=== PATIENT | male | born 1990 | race African-American/Black ===

== ENCOUNTER 2016-10-12 09:31 | Emergency (ER) | payer OTHER ==
[~2016-10-12] VITALS: Ht 157.5 cm; Wt 80.0 kg
[~2016-10-12 09:31] MED LIST: BENZ100 PO; IBUP800T23 PO; METHO500 PO; Z.0.NO CURRENT MEDS; ZITH250T PO
[2016-10-12 09:33] VITALS: BP 140/81; PULSE 70; RESP 16; TEMP 98.5; O2SAT 98
[2016-10-12] MEDS ORDERED: SODIUM CHLORIDE 0.9% FLUSH 10 ML FLUSH IV FLUSH PRN (10:15)
[2016-10-12] MEDS ORDERED: KETOROLAC TROMETHAMINE 60 MG/2 ML (IM) VIAL IM ONE (10:15)
[2016-10-12] MEDS ORDERED: KETOROLAC TROMETHAMINE 30 MG/ML (IVP) VIAL IV PUSH ONE (10:15)
--- NOTE | 2016-10-12 10:23 | PD ---
HPI Chief Complaint: Complaint Time Seen by Provider: 10:18 (Yamel Barajas) Time Seen by Provider: 10:23 (Marti Zamora MD) Travel History International Travel<30 days: No Contact w/Intl Traveler<30days: No Traveled to known affect area: No (Yamel Barajas) History of Present Illness HPI 26-year-old male presents to emergency Department with complaint of burning on urination since yesterday. He has had difficulty urinating this morning with minimal urine output. He has attempted to urinate 3 times this morning with no relief. Reports hematuria 2-3 days ago, but not now. Reports lower abdominal pain that radiates to both flanks. Denies fever, nausea, vomiting. Denies penile drainage, pain, testicular pain, testicular swelling. Denies exposure to STD. Denies history of kidney stones. Has not taken any medications or tried any treatment to alleviate his symptoms. No known allergies. No other modifying factors or associated signs and symptoms. (Yamel Barajas) PFSH Past Medical History Respiratory: Yes (asthma) (Yamel Barajas) Social History Tobacco Use: No (Yamel Barajas) Allergies-Medications (Allergen,Severity, Reaction): Coded Allergies: No Known Allergies (Unverified , 10/12/16) Reported Meds & Prescriptions Reported Meds & Active Scripts Active No Active Prescriptions or Reported Medications (Marti Zamora MD) Review of Systems Except as stated in HPI: all other systems reviewed are Neg (Yamel Barajas) Physical Exam Narrative GENERAL: Well-nourished, well-developed male patient, in no acute distress; afebrile, nontoxic-appearing; pacing around the room and appears uncomfortable SKIN: Warm and dry. No rash. HEAD: Atraumatic. Normocephalic. EYES: Pupils equal and round. No scleral icterus. No injection or drainage. ENT: Mucosa pink and moist. NECK: Trachea midline. CARDIOVASCULAR: Regular rate. RESPIRATORY: No accessory muscle use. GASTROINTESTINAL: Abdomen soft, nontender, nondistended. Hepatic and splenic margins not palpable. Bowel sounds are active 4 quadrants. Bladder tender and distended. MUSCULOSKELETAL: No obvious deformities. No clubbing. No cyanosis. No edema. BACK: Patient reports CVA tenderness bilaterally on physical exam. NEUROLOGICAL: Awake and alert. Oriented 3. No obvious cranial nerve deficits. Motor grossly within normal limits. Normal speech. Moves all extremities. 5/5 strength to all extremities. PSYCHIATRIC: Appropriate mood and affect; insight and judgment normal. (Yamel Barajas) Data Data Last Documented VS Vital Signs Date Time Temp Pulse Resp B/P Pulse Ox O2 Delivery O2 Flow Rate FiO2 10/12/16 09:33 98.5 70 16 140/81 98 (Marti Zamora MD) Orders Gc And Chlamydia Pcr (10/12/16 10:02) Urinalysis - C+S If Indicated (10/12/16 10:02) Ketorolac Inj (Toradol Inj) (10/12/16 10:15) Complete Blood Count With Diff (10/12/16 10:14) Iv Access Insert/Monitor (10/12/16 10:14) Sodium Chloride 0.9% Flush (Ns Flush) (10/12/16 10:15) Ketorolac Inj (Toradol Inj) (10/12/16 10:15) Cath For Specimen (10/12/16 10:14) Basic Metabolic Panel (Bmp) (10/12/16 10:26) Bladder/Catheter Irrigation (10/12/16 11:58) (Marti Zamora MD) Labs Laboratory Tests Test 10/12/16 10/12/16 11:00 11:20 Urine Color YELLOW Urine Turbidity CLEAR Urine pH 6.0 Urine Specific [place] 1.025 Urine Protein 100 mg/dL Urine Glucose (UA) NEG mg/dL Urine Ketones NEG mg/dL Urine Occult Blood MOD Urine Nitrite NEG Urine Bilirubin NEG Urine Urobilinogen 2.0 MG/DL Urine Leukocyte Esterase NEG Urine RBC /hpf Urine WBC 8 /hpf Urine Mucus FEW /lpf Microscopic Urinalysis Comment CULT NOT INDICATED White Blood Count 9.3 TH/MM3 Red Blood Count 5.45 MIL/MM3 Hemoglobin 14.3 GM/DL Hematocrit 44.9 % Mean Corpuscular Volume 82.4 FL Mean Corpuscular Hemoglobin 26.2 PG Mean Corpuscular Hemoglobin 31.8 % Concent Red Cell Distribution Width 14.3 % Platelet Count 143 TH/MM3 Mean Platelet Volume 11.3 FL Neutrophils (%) (Auto) 82.9 % Lymphocytes (%) (Auto) 12.0 % Monocytes (%) (Auto) 4.2 % Eosinophils (%) (Auto) 0.2 % Basophils (%) (Auto) 0.7 % Neutrophils # (Auto) 7.7 TH/MM3 Lymphocytes # (Auto) 1.1 TH/MM3 Monocytes # (Auto) 0.4 TH/MM3 Eosinophils # (Auto) 0.0 TH/MM3 Basophils # (Auto) 0.1 TH/MM3 CBC Comment DIFF FINAL Differential Comment Sodium Level 143 MEQ/L Potassium Level 4.1 MEQ/L Chloride Level 107 MEQ/L Carbon Dioxide Level 28.1 MEQ/L Anion Gap 8 MEQ/L Blood Urea Nitrogen 11 MG/DL Creatinine 1.30 MG/DL Estimat Glomerular Filtration 80 ML/MIN Rate Random Glucose 112 MG/DL Calcium Level 8.8 MG/DL (Marti Zamora MD) Labs Laboratory Tests Test 10/12/16 10/12/16 11:00 11:20 Urine Color YELLOW Urine Turbidity CLEAR Urine pH 6.0 Urine Specific [place] 1.025 Urine Protein 100 mg/dL Urine Glucose (UA) NEG mg/dL Urine Ketones NEG mg/dL Urine Occult Blood MOD Urine Nitrite NEG Urine Bilirubin NEG Urine Urobilinogen 2.0 MG/DL Urine Leukocyte Esterase NEG Urine RBC /hpf Urine WBC 8 /hpf Urine Mucus FEW /lpf Microscopic Urinalysis Comment CULT NOT INDICATED Chlamydia trachomatis DNA INVALID (PCR) Neisseria gonorrhoeae DNA INVALID (PCR) White Blood Count 9.3 TH/MM3 Red Blood Count 5.45 MIL/MM3 Hemoglobin 14.3 GM/DL Hematocrit 44.9 % Mean Corpuscular Volume 82.4 FL Mean Corpuscular Hemoglobin 26.2 PG Mean Corpuscular Hemoglobin 31.8 % Concent Red Cell Distribution Width 14.3 % Platelet Count 143 TH/MM3 Mean Platelet Volume 11.3 FL Neutrophils (%) (Auto) 82.9 % Lymphocytes (%) (Auto) 12.0 % Monocytes (%) (Auto) 4.2 % Eosinophils (%) (Auto) 0.2 % Basophils (%) (Auto) 0.7 % Neutrophils # (Auto) 7.7 TH/MM3 Lymphocytes # (Auto) 1.1 TH/MM3 Monocytes # (Auto) 0.4 TH/MM3 Eosinophils # (Auto) 0.0 TH/MM3 Basophils # (Auto) 0.1 TH/MM3 CBC Comment DIFF FINAL Differential Comment Sodium Level 143 MEQ/L Potassium Level 4.1 MEQ/L Chloride Level 107 MEQ/L Carbon Dioxide Level 28.1 MEQ/L Anion Gap 8 MEQ/L Blood Urea Nitrogen 11 MG/DL Creatinine 1.30 MG/DL Estimat Glomerular Filtration 80 ML/MIN Rate Random Glucose 112 MG/DL Calcium Level 8.8 MG/DL (Yamle Barajas) MDM Medical Decision Making Medical Screen Exam Complete: Yes Emergency Medical Condition: Yes Medical Record Reviewed: Yes Differential Diagnosis Obstructive uropathy, hematuria, inability to urinate Narrative Course 26-year-old male with difficulty urinating that started this morning upon wakening up. He had dysuria yesterday and hematuria with the past couple days. He denies history of kidney stones. His bladder is tender and distended on physical exam. The patient appears uncomfortable and is pacing around the room. He has attempted to urinate 3 times while here in the ER with very minimal urine output. 1015: I spoke with Dr. Keating and he recommended to check kidney function and cath for urine. CBC, CMP ordered. Catheter urine ordered. Urinalysis, chlamydia, gonorrhea ordered. IV ordered, Toradol ordered. Treatment initiated in triage. Care of patient will be transferred to alternate provider when medical bed is available. (Yamel Barajas) Diagnosis Primary Impression: Obstructive uropathy Additional Impressions: Hematuria Inability to urinate Referrals: Sukhwinder Caal DO 1 day Additional Instructions: Go to Dr. Caal's office now for cystoscopy. Med/Other Pt SpecificInfo: No Change to Meds (Marti Zamora MD) Scripts No Active Prescriptions or Reported Meds Disposition: 01 DISCHARGE HOME Condition: Stable Yamel Barajas Oct 12, 2016 10:23 Marti Zamora MD Oct 12, 2016 13:00
[2016-10-12 11:31] LABS: AUTOMATED NEUTROPHIL # 7.7 TH/MM3 (1.8-7.7); BASOPHIL # 0.1 TH/MM3 (0-0.2); BASOPHIL % 0.7 % (0.0-2.0); EOSINOPHIL % 0.2 % (0.0-4.0); HEMATOCRIT 44.9 % (39.0-51.0); HEMO FLAGS DIFF FINAL; LYMPHOCYTE # 1.1 TH/MM3 (1.0-4.8); MEAN CELL VOLUME 82.4 FL (80.0-100.0); MEAN CORPUSCULAR HEMOGLOBIN 26.2 PG (27.0-34.0); MEAN CORPUSCULAR HGB CONC 31.8 % (32.0-36.0); MONO % 4.2 % (0.0-8.0); NEUT % 82.9 % (16.0-70.0); PLATELET COUNT 143 TH/MM3 (150-450); RED BLOOD COUNT 5.45 MIL/MM3 (4.50-5.90); RED CELL DISTRIBUTION WIDTH 14.3 % (11.6-17.2); WHITE BLOOD COUNT 9.3 TH/MM3 (4.0-11.0)
[2016-10-12 11:56] LABS: BICARBONATE 28.1 MEQ/L (21.0-32.0); POTASSIUM 4.1 MEQ/L (3.5-5.1)
[2016-10-12 12:14] LABS: BLOOD, URINE MOD (NEG); COMMENT (UR) CULT NOT INDICATED; CULTURE IF INDICATED CULT NOT INDICATED; GLUCOSE,URINE NEG (NEG); KETONE, URINE NEG (NEG); MUCUS URINE FEW /lpf (OCC); NITRITE,URINE NEG (NEG); URINE COLOR YELLOW (YELLW/STRAW)
[2016-10-12] MEDS ORDERED: MORPHINE SULFATE 4 MG/ML INJ IV PUSH ONE (13:00)
--- NOTE | 2016-10-12 13:05 | PD ---
Data Data Last Documented VS Vital Signs Date Time Temp Pulse Resp B/P Pulse Ox O2 Delivery O2 Flow Rate FiO2 10/12/16 09:33 98.5 70 16 140/81 98 Orders Gc And Chlamydia Pcr (10/12/16 10:02) Urinalysis - C+S If Indicated (10/12/16 10:02) Ketorolac Inj (Toradol Inj) (10/12/16 10:15) Complete Blood Count With Diff (10/12/16 10:14) Iv Access Insert/Monitor (10/12/16 10:14) Sodium Chloride 0.9% Flush (Ns Flush) (10/12/16 10:15) Ketorolac Inj (Toradol Inj) (10/12/16 10:15) Cath For Specimen (10/12/16 10:14) Basic Metabolic Panel (Bmp) (10/12/16 10:26) Bladder/Catheter Irrigation (10/12/16 11:58) Morphine Inj (Morphine Inj) (10/12/16 13:00) Labs Laboratory Tests Test 10/12/16 10/12/16 11:00 11:20 Urine Color YELLOW Urine Turbidity CLEAR Urine pH 6.0 Urine Specific [place] 1.025 Urine Protein 100 mg/dL Urine Glucose (UA) NEG mg/dL Urine Ketones NEG mg/dL Urine Occult Blood MOD Urine Nitrite NEG Urine Bilirubin NEG Urine Urobilinogen 2.0 MG/DL Urine Leukocyte Esterase NEG Urine RBC /hpf Urine WBC 8 /hpf Urine Mucus FEW /lpf Microscopic Urinalysis Comment CULT NOT INDICATED White Blood Count 9.3 TH/MM3 Red Blood Count 5.45 MIL/MM3 Hemoglobin 14.3 GM/DL Hematocrit 44.9 % Mean Corpuscular Volume 82.4 FL Mean Corpuscular Hemoglobin 26.2 PG Mean Corpuscular Hemoglobin 31.8 % Concent Red Cell Distribution Width 14.3 % Platelet Count 143 TH/MM3 Mean Platelet Volume 11.3 FL Neutrophils (%) (Auto) 82.9 % Lymphocytes (%) (Auto) 12.0 % Monocytes (%) (Auto) 4.2 % Eosinophils (%) (Auto) 0.2 % Basophils (%) (Auto) 0.7 % Neutrophils # (Auto) 7.7 TH/MM3 Lymphocytes # (Auto) 1.1 TH/MM3 Monocytes # (Auto) 0.4 TH/MM3 Eosinophils # (Auto) 0.0 TH/MM3 Basophils # (Auto) 0.1 TH/MM3 CBC Comment DIFF FINAL Differential Comment Sodium Level 143 MEQ/L Potassium Level 4.1 MEQ/L Chloride Level 107 MEQ/L Carbon Dioxide Level 28.1 MEQ/L Anion Gap 8 MEQ/L Blood Urea Nitrogen 11 MG/DL Creatinine 1.30 MG/DL Estimat Glomerular Filtration 80 ML/MIN Rate Random Glucose 112 MG/DL Calcium Level 8.8 MG/DL MDM Supervised Visit with SHEILA: Yes Narrative Course I, Dr. Zamora, have reviewed the advance practice practioner's documentation and am in agreement, met with the patient face to face, made the diagnosis, and the medical decision making was done by me. *My assessment and Findings: 26-year-old healthy male here with inability to urinate. History asthma, no previous surgery. Smokes marijuana but not tobacco. Yesterday he had slight amount of burning with urination and then was unable to urinate this morning upon wakening. He notes a pressure in the low abdomen and the urge to urinate but inability to do so. Several days ago he had hematuria but none yesterday. This morning in the ER he was able to urinate approximately 30 mL of grossly bloody urine with clots. Since he's not been able to urinate. Patient has reproducible tenderness palpation in the superior pubic region with fullness and approximate 1 L of urine on bladder scan. He does not have any pain in the flank. Attempted to place urine catheter multiple times by myself and nursing with inability to do so. When I tried the catheter makes it to the prostatic urethra and then stops and when withdrawn is full of clot. Differential includes obstructive uropathy, stricture, stone, infection, gross hematuria. I spoke with Dr. Caal of urology who would like patient discharged from the ER to go to his office now for cystoscopy. Case discussed with patient and significant other who are agreeable with plan. Laboratory workup negative with normal renal function and negative urinalysis except for the blood. No evidence of infection. Diagnosis Primary Impression: Obstructive uropathy Additional Impressions: Hematuria Inability to urinate Referrals: Sukhwinder Caal DO [address] Caal's office now for cystoscopy. Patient Instructions: General Instructions Departure Forms: Tests/Procedures Additional Instruction: Go to Dr. Caal's office now for cystoscopy. Scripts No Active Prescriptions or Reported Meds Disposition: 01 DISCHARGE HOME Condition: Stable Marti Zamora MD Oct 12, 2016 13:05
[2016-10-12] MEDS ORDERED: MORPHINE SULFATE 4 MG/ML INJ IM ONE (13:30)
[2016-10-12 16:04] LABS: CHLAMYDIA PCR INVALID (NOT DETECT); NEISSERIA PCR INVALID (NOT DETECT)
[2016-10-12] MEDS ORDERED: LEVA500T PO (20:57)
[2016-10-12] MEDS ORDERED: NORC5TAB PO (21:10)
[2016-10-14] MEDS ORDERED: HYDR-3580 PO (16:24)
[2016-11-01] MEDS ORDERED: OXYB5TAB10 PO (15:53)
[2016-12-02] MEDS ORDERED: PHEN0.4T PO (10:53)
== END 2016-10-12 13:48 | disposition home or self-care (01) ==
LOC: NEPB 09:31
DX: N13.9 Obstructive and reflux uropathy, unspecified (principal); R31.9 Hematuria, unspecified
CPT/HCPCS: 80048; 81001; 85025; 87491; 87591; 96374; 96375; 99284; J1885

== ENCOUNTER 2016-10-12 16:34 | Emergency (ER) | payer OTHER ==
[~2016-10-12] VITALS: Ht 157.5 cm; Wt 80.0 kg
[2016-10-12 16:38] VITALS: BP 125/67; PULSE 71; RESP 16; O2SAT 98
[2016-10-12] MEDS ORDERED: MIDAZOLAM HCL 5 MG/5 ML VIAL ONE (17:29)
[2016-10-12] MEDS ORDERED: fentaNYL CITRATE 250 MCG/5 ML AMP ONE (17:29)
[2016-10-12] MEDS ORDERED: LEVOFLOXACIN 500 MG PREMIX INJ 100 ML IV ONE (17:37)
--- NOTE | 2016-10-12 18:22 | PD.RAD ---
Post Procedure Progress Note Pre Procedure Diagnosis: (1) Obstructive uropathy (2) Inability to urinate Post Procedure Diagnosis: (1) Obstructive uropathy (2) Inability to urinate Procedure Date: Oct 12, 2016 Supervising Radiologist: Ab Charles Proceduralist/Assist: Arleen Mendieta, RT(R)(), Kar Prajapati RT(R) Anesthesia: Local, Analgesia, Conscious Sedation Plan of Activity Patient to Unit: Other (ED) Patient Condition: Good See PACS Report for procedural detail/treatment Drainage Procedure Procedure 1 Imaging Guidance: Fluoroscopy, Ultrasound Procedure Type: Suprapubic Tube (16 FR) Procedure: Placement Albanian: 16 Fluid Description: Bloody, Yellow Central Venous Access Device Procedure 1 Right (basilic) Peripheral Dialator Placement single lumen Albanian: 4 Ab Charles MD Oct 12, 2016 18:22
[2016-10-12] MEDS ORDERED: IOHEXOL 350 MG/ML 50 ML BTL (for RAD DIAG) OTHER ONE (18:42)
--- NOTE | 2016-10-12 18:55 | PD ---
HPI Chief Complaint: Complaint Time Seen by Provider: 18:48 Travel History International Travel<30 days: No Contact w/Intl Traveler<30days: No Traveled to known affect area: No History of Present Illness HPI The patient is a 26-year-old Josi male who was in the emergency department earlier today for urethral obstruction, staff was unable to pass a Pimentel, and the patient was sent to the urologist office. The patient saw Dr. Caal and was unable to have a Pimentel catheter placed, possibly secondary to a false lumen. Therefore, the patient was sent back to the [facility] for interventional radiology to place a suprapubic catheter. Dr. Charles placed a 16 [place]ammarinese suprapubic catheter which had bloody urine. The patient was then sent to the emergency department for post sedation monitoring. Upon arrival the patient is repetitive after getting Versed 5 mg and fentanyl 250 mics, but vitals were stable. The patient was placed on cardiac telemetry monitoring and continuous pulse oximetry monitoring. The patient was monitored in the emergency department. [facility] Past Medical History Asthma: Yes Respiratory: Yes (asthma) Past Surgical History Surgical History: No Previous Surgery Social History Alcohol Use: No Tobacco Use: No Substance Use: Yes (MARIJUANA) Allergies-Medications (Allergen,Severity, Reaction): Coded Allergies: No Known Allergies (Unverified , 10/12/16) Reported Meds & Prescriptions Reported Meds & Active Scripts Active No Active Prescriptions or Reported Medications Review of Systems Except as stated in HPI: all other systems reviewed are Neg Cardiovascular: No: Chest Pain or Discomfort Respiratory: No: Shortness of Breath Gastrointestinal: No: Nausea, Vomiting, Abdominal Pain Genitourinary: Positive: Other (as noted in the history of present illness) Physical Exam Narrative GENERAL: Awake, alert, very pleasant 26-year-old male who appears his stated age is in no acute respiratory distress. SKIN: Focused skin assessment warm/dry. HEAD: Atraumatic. Normocephalic. EYES: No injection or drainage. ENT: No nasal bleeding or discharge. Mucous membranes pink and moist. NECK: Trachea midline. No JVD. CARDIOVASCULAR: Regular rate and rhythm. No murmur appreciated. RESPIRATORY: No accessory muscle use. Clear to auscultation. Breath sounds equal bilaterally. GASTROINTESTINAL: Abdomen soft, suprapubic Pimentel catheter in place with dressing in place. Bloody urine noted in Pimentel catheter bag. MUSCULOSKELETAL: No obvious deformities. No clubbing. No cyanosis. No edema. Circumcised phallus. NEUROLOGICAL: Awake and alert. No obvious cranial nerve deficits. Motor grossly within normal limits. Normal speech. PSYCHIATRIC: Appropriate mood and affect; insight and judgment normal. Data Data Last Documented VS Vital Signs Date Time Temp Pulse Resp B/P Pulse Ox O2 Delivery O2 Flow Rate FiO2 10/12/16 16:38 71 16 125/67 98 Orders Midazolam Inj (Versed Inj) (10/12/16 17:29) Fentanyl Inj (Fentanyl Inj) (10/12/16 17:29) Levofloxacin 500 Mg Premix Inj (Levaquin (10/12/16 17:37) Vital Signs (Adult) Q15MX2,Q30MX2 (10/12/16 18:18) Intake + Output NAA.QSHIFT (10/12/16 18:18) ^ Drain (10/12/16 18:18) ^ Change Dressing (10/12/16 18:18) ^ Notify Radiology (10/12/16 18:18) Diet Regular Basic (10/12/16 Dinner) ^ Discharge Instructions (10/12/16 18:18) Suprapubic Tube Placement (10/12/16 ) Peripheral Iv Access W/Us (10/12/16 ) Iohexol 350 Inj (Omnipaque 350 Inj) (10/12/16 18:42) Bag, Leg 32oz Sterile Large Ea (10/12/16 18:49) MDM Medical Decision Making Medical Screen Exam Complete: Yes Emergency Medical Condition: Yes Medical Record Reviewed: Yes Differential Diagnosis Differential diagnosis includes urethral obstruction, false urethra lumen, hematuria, obstructive uropathy, inability to urinate. Narrative Course The patient presents emergency department from interventional radiology after having a 16 Sammarinese suprapubic Pimentel catheter placed. There was 200 cc of bloody urine output. The patient was placed on cardiac telemetry monitoring and continuous pulse oximetry monitoring. The patient was then monitored in the emergency department Diagnosis Primary Impression: Obstructive uropathy Additional Impression: Hematuria Patient Instructions: General Instructions Additional Instructions: Follow-up with a urologist, Dr. Caal. Return if symptoms worsen or progress. Monitor urine output. Med/Other Pt SpecificInfo: No Change to Meds Scripts No Active Prescriptions or Reported Meds Disposition: 01 DISCHARGE HOME Condition: Stable Carcamo,Roberto Z. MD Oct 12, 2016 18:55
[2016-10-12] MEDS ORDERED: LEVA500T PO (20:57)
[2016-10-12] MEDS ORDERED: NORC5TAB PO (21:10)
[2016-10-12 22:09] VITALS: BP 122/64
--- NOTE | 2016-10-13 09:49 | RADRPT ---
EXAM DATE/TIME: 10/12/2016 00:00 [facility] COMPARISON: No previous studies available for comparison. INDICATIONS : Patient presents with obstructive uropathy and the inability to urinate in need of peripheral intrav enous tube placement for medication administration. MEDICAL HISTORY : N/A SURGICAL HISTORY : N/A ENCOUNTER: Initial ACUITY: 1 day PAIN SCORE: 0/10 LOCATION: N/A IMAGE SERIES: 0 ACCESS: Right basilic vein DEVICE(S): 1.) 3/4 Israeli Dilator PROCEDURE : 1. Ultrasound guided venous access. The risks, benefits and alternatives to the procedure were explained and verbal and written consent w as obtained. The site was prepped in sterile fashion. Full sterile technique was used, including ca p, mask, sterile gloves and gown and a large sterile sheet. Hand hygiene and 2% chlorhexidine and/or betadine/alcohol prep was utilized per protocol for cutaneous antisepsis. The skin and subcutaneous tissues were infiltrated with local anesthetic solution. With ultrasound guidance the prescribed vein was punctured for venous access. A 4 Israeli dilator was placed and was flushed and locked with heparin. The patient tolerated procedure well and there were n o complications. CONCLUSION: Uncomplicated ultrasound guided venous access. Ab Charles MD on October 13, 2016 at 9:47 Board Certified Radiologist. This report was verified electronically.
--- NOTE | 2016-10-13 10:03 | RADRPT ---
EXAM DATE/TIME: 10/12/2016 16:56 [facility] COMPARISON: No previous studies available for comparison. INDICATIONS : Patient presents with obstructive uropathy and the inability to urinate in need of suprapubic cathete r tube placement. MEDICAL HISTORY : N/A SURGICAL HISTORY : N/A ENCOUNTER: Initial ACUITY: 1 day PAIN SCORE: 0/10 LOCATION: N/A FLUORO TIME: 2.6 minutes IMAGE SERIES: 2 SEDATION TIME: 30 minutes CONTRAST: 10 cc Omnipaque 350 (iohexol) Suprapubic tube MEDICATION(S): 1.) 5 mg midazolam (Versed) IV 2.) 250 mcg fentanyl (Sublimaze) IV 3.) 500 mg levofloxacin (Levaquin) IV DEVICE(S): 1.) Pimentel catheter 16FR PROCEDURE : 1. Ultrasound localization of the bladder. 2. Suprapubic catheter placement. 3. Conscious sedation with continuous EKG and oximetry monitoring. The risks, benefits and alternatives to the procedure were explained and verbal and written consent w as obtained. The site was prepped in sterile fashion. Full sterile technique was used, including ca p, mask, sterile gloves and gown and a large sterile sheet. Hand hygiene and 2% chlorhexidine and/or betadine/alcohol prep was utilized per protocol for cutaneous antisepsis. The skin and subcutaneous tissues were infiltrated with local anesthetic solution. Utilizing ultrasound and fluoroscopic guidance the urinary bladder was localized. Just above the pub ic symphysis in the midline a dermatotomy was made and serial dilatation was performed to accept a 16 [place] Islander Pimentel catheter. The balloon was inflated and positive contrast was injected to document intr aluminal position. Conscious sedation was performed with the prescribed dosages and duration as above in the presence of an independent trained radiology nurse to assist in the monitoring of the patient. EKG and oximetry remained stable throughout the procedure. The patient tolerated the procedure well and there were n o complications. The patient was sent to post anesthesia recovery in stable condition. CONCLUSION: Uncomplicated suprapubic catheter placement. Ab Charles MD on October 13, 2016 at 9:47 Board Certified Radiologist. This report was verified electronically.
[2016-10-14] MEDS ORDERED: HYDR-3580 PO (16:24)
[2016-11-01] MEDS ORDERED: OXYB5TAB10 PO (15:53)
[2016-12-02] MEDS ORDERED: PHEN0.4T PO (10:53)
== END 2016-10-12 22:13 | disposition home or self-care (01) ==
LOC: NEPB 16:34
DX: N13.9 Obstructive and reflux uropathy, unspecified (principal); R31.9 Hematuria, unspecified
CPT/HCPCS: 36410; 51102; 76937; 76942; 77002; 99152; 99153; 99281; C1769; C1887; C1894; J1956; J2250; J3010; Q9967

== ENCOUNTER 2016-10-21 21:17 | Emergency (ER) | payer OTHER ==
[~2016-10-21] VITALS: Ht 177.8 cm; Wt 91.0 kg
[~2016-10-21 21:17] MED LIST changes: -BENZ100 PO; +HYDR-3580 PO; -IBUP800T23 PO; +LEVA500T PO; -METHO500 PO; -Z.0.NO CURRENT MEDS; -ZITH250T PO
[2016-10-21 21:28] VITALS: BP 116/75; PULSE 87; RESP 16; TEMP 98.8; O2SAT 99
[2016-10-21] MEDS ORDERED: traMADol HCL 50 MG TAB PO ONE (22:15)
[2016-10-21] MEDS ORDERED: PHENAZOPYRIDINE HCL 100 MG TAB PO ONE (22:15)
[2016-10-21] MEDS ORDERED: PHEN0.4T PO (22:20)
[2016-10-21] MEDS ORDERED: TRAM50TA PO (22:20)
--- NOTE | 2016-10-21 22:21 | PD ---
HPI Chief Complaint: Assembler Equipment Problem Time Seen by Provider: 22:07 Travel History International Travel<30 days: No Contact w/Intl Traveler<30days: No Traveled to known affect area: No History of Present Illness HPI 26-year-old male who had a suprapubic Pimentel catheter placed on 10/12/16 for obstructive uropathy, he for evaluation of pain at site of tube. The patient believes that the catheter may be dislodged. He noticed some blood clots earlier today and his urine. Currently his urine is clear. No fevers or chills. PFSH Past Medical History Asthma: Yes Diminished Hearing: No Respiratory: Yes (asthma) Past Surgical History Genitourinary Surgery: Yes (SUPRAPUBIC CATHETER INSERTION 10/12/16) Social History Alcohol Use: No Tobacco Use: No Substance Use: No Allergies-Medications (Allergen,Severity, Reaction): Coded Allergies: No Known Allergies (Unverified , 10/21/16) Reported Meds & Prescriptions Reported Meds & Active Scripts Active Hydrocodone-Acetaminophen 7.5-325 mg Tab 1 Tab PO Q6H PRN Levaquin (Levofloxacin) 500 Mg Tab 500 Mg PO DAILY 7 Days Review of Systems Except as stated in HPI: all other systems reviewed are Neg Physical Exam Narrative GENERAL: Well-developed, well-nourished, comfortable, no acute distress. SKIN: Suprapubic Pimentel catheter in place with surrounding skin clean, dry, intact without erythema, without purulence. GASTROINTESTINAL: Abdomen soft, non-tender, nondistended. Mild tenderness around suprapubic Pimentel site without induration, without warmth, without purulence. Suprapubic Pimentel bag with clear/yellow urine. NEUROLOGICAL: Awake and alert. No obvious cranial nerve deficits. Motor grossly within normal limits. Normal speech. PSYCHIATRIC: Appropriate mood and affect; insight and judgment normal. Data Data Last Documented VS Vital Signs Date Time Temp Pulse Resp B/P Pulse Ox O2 Delivery O2 Flow Rate FiO2 10/21/16 21:52 Room Air 10/21/16 21:28 98.8 87 16 116/75 99 Orders Tramadol (Ultram) (10/21/16 22:15) Phenazopyridine (Pyridium) (10/21/16 22:15) MDM Medical Decision Making Medical Screen Exam Complete: Yes Emergency Medical Condition: Yes Differential Diagnosis Bladder irritation, suprapubic Pimentel dislodgment, acute intra-abdominal process unlikely Narrative Course Vital signs are within normal limits. Bedside transabdominal ultrasound was performed and shows Pimentel balloon within the bladder with completely empty bladder. The patient has mild tenderness around the suprapubic Pimentel catheter site without signs of infection. There are no peritoneal signs. I do not believe he has an acute intra-abdominal process. He may have some bladder irritation secondary to the Pimentel catheter. Plan is to discharge him home with pain medication and Pyridium. He has a follow-up appointment with his urologist in 4 days. He was informed on when to return to the emergency department. He verbalizes understanding and agreement with plan. Diagnosis Primary Impression: Suprapubic catheter Referrals: Urologist 3 days Additional Instructions: Follow-up with your urologist as scheduled. Return to the emergency department for worsening symptoms or any other concerns as discussed. Scripts Phenazopyridine (Pyridium)100 Mg [id number] Mg PO Q8H PRN (DYSURIA) #15 TAB Ref 0 Prov:Jermain Awad MD 10/21/16 Tramadol 50 Mg Tab50 Mg PO Q6H PRN (PAIN) #12 TAB Ref 0 Prov:Jermain Awad MD 10/21/16 Disposition: 01 DISCHARGE HOME Condition: Stable Jermain Awad MD Oct 21, 2016 22:20
[2016-10-21] MEDS ORDERED: diphenhydrAMINE HCL 25 MG CAP PO ONE (22:30)
[2016-11-01] MEDS ORDERED: OXYB5TAB10 PO (15:53)
[2016-12-02] MEDS ORDERED: PHEN0.4T PO (10:53)
== END 2016-10-21 23:00 | disposition home or self-care (01) ==
LOC: NEPD 21:17
DX: T83.018A Breakdown (mechanical) of other urinary catheter, initial encounter (principal); Y84.6 Urinary catheterization as the cause of abnormal reaction of the patient, or of later complication, without mention of misadventure at the time of the procedure
CPT/HCPCS: 99283

== ENCOUNTER 2016-10-30 19:33 | Emergency (ER) | payer OTHER ==
[~2016-10-30] VITALS: Ht 175.3 cm; Wt 78.0 kg
[~2016-10-30 19:33] MED LIST changes: -LEVA500T PO; +PHEN0.4T PO
[2016-10-30 19:36] VITALS: BP 130/75; PULSE 75; RESP 16; TEMP 99; O2SAT 98
--- NOTE | 2016-10-30 20:31 | PD ---
HPI Chief Complaint: Complaint Time Seen by Provider: 20:30 Travel History International Travel<30 days: No Contact w/Intl Traveler<30days: No Traveled to known affect area: No History of Present Illness HPI 26 year old male presents to the emergency department for evaluation of urine and blood coming from his penis. He reports suprapubic catheter that was placed by Dr. Caal. 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 He states he has blood clots in his bladder. He saw Dr. Caal in his office 5 days ago and accroding to that note, he was having these symptoms at that time as well. Patient denies any fevers. He states he is due to have surgery on 11/[address] Caal. He states he is out of his Lortab and he is concerned he may need to be on antibiotics again. PFSH Past Medical History Asthma: Yes Diminished Hearing: No Respiratory: Yes (asthma) Past Surgical History Genitourinary Surgery: Yes (SUPRAPUBIC CATHETER INSERTION 10/12/16) Social History Alcohol Use: No Tobacco Use: No Substance Use: No Allergies-Medications (Allergen,Severity, Reaction): Coded Allergies: Tramadol (Verified Allergy, Severe, Itching, 10/30/16) Reported Meds & Prescriptions Reported Meds & Active Scripts Active Ciprofloxacin (Ciprofloxacin HCl) 500 Mg Tab 500 Mg PO BID 10 Days Review of Systems Except as stated in HPI: all other systems reviewed are Neg Physical Exam Narrative GENERAL: Well-nourished, well-developed male patient, ambulatory and in no acute distress. Afebrile. SKIN: Focused skin assessment warm/dry. HEAD: Normocephalic. Atraumatic. EYES: No scleral icterus. No injection or drainage. NECK: Supple, trachea midline. No JVD or lymphadenopathy. CARDIOVASCULAR: Regular rate and rhythm without murmurs, gallops, or rubs. RESPIRATORY: Breath sounds equal bilaterally. No accessory muscle use. Lung sounds are clear to auscultation. GASTROINTESTINAL: Abdomen soft and nondistended. Patient has suprapubic catheter noted with tenderness around insertion. No erythema or drainage noted. MUSCULOSKELETAL: No cyanosis, or edema. BACK: Nontender without obvious deformity. No CVA tenderness. Data Data Last Documented VS Vital Signs Date Time Temp Pulse Resp B/P Pulse Ox O2 Delivery O2 Flow Rate FiO2 10/30/16 20:30 75 16 10/30/16 19:36 99.0 130/75 98 Room Air Orders Urinalysis - C+S If Indicated (10/30/16 20:31) Urine Culture (10/30/16 20:35) Ceftriaxone Inj (Rocephin Inj) (10/30/16 21:30) Lidocaine 1% Inj (50 Ml) (Xylocaine 1% I (10/30/16 21:30) Labs Laboratory Tests Test 10/30/16 20:35 Urine Color LIGHT-BROWN Urine Turbidity CLOUDY Urine pH 7.5 Urine Specific [place] 1.022 Urine Protein 300 mg/dL Urine Glucose (UA) NEG mg/dL Urine Ketones NEG mg/dL Urine Occult Blood LARGE Urine Nitrite NEG Urine Bilirubin NEG Urine Urobilinogen LESS THAN 2.0 MG/DL Urine Leukocyte Esterase MOD Urine RBC /hpf Urine WBC 81 /hpf Urine WBC Clumps FEW Urine Yeast (Budding) FEW Microscopic Urinalysis Comment CULTURE INDICATED MDM Medical Decision Making Medical Screen Exam Complete: Yes Emergency Medical Condition: Yes Medical Record Reviewed: Yes Differential Diagnosis UTI vs. suprapubic catheter vs. chronic pain Narrative Course 26 year old male presents to the emergency department for evaluation of his suprapubic catheter. UA shows large occult blood, moderate leukocyte esterase, 81 WBC, few WBC clumps. Patient is given Rocephin 1 GM IM. He will be discharged with a prescription for cipro. He is to follow up with Dr. Caal. My attending physician, Dr. Reyes, is aware of physical exam findings and laboratory findings. She agrees with plan and disposition. The patient was discharged in stable condition with instructions, including return instructions and follow up instructions. Diagnosis Primary Impression: Urinary tract infection Qualified Code: N30.01 - Acute cystitis with hematuria Referrals: Sukhwinder Caal DO 3 days Patient Instructions: Catheter-associated Urinary Tract Infection (ED), General Instructions Additional Instructions: Take antibiotic as directed until gone. Take Lortab as directed as needed for pain. Caution this can make you drowsy so do not drive after taking. Follow up with Dr. Caal on Tuesday. Return to the emergency department for any acute, worsening of symptoms. Med/Other Pt SpecificInfo: Prescription(s) given Scripts Hydrocodone-Acetaminophen (Lortab)5-325 Mg Tab1 Tab PO Q6H PRN (PAIN) #12 TAB Ref 0 Prov:Annamarie Reyes MD 10/30/16 Ciprofloxacin 500 Mg Obg293 Mg PO BID 10 Days Ref 0 Prov:Melissa Limon 10/30/16 Disposition: 01 DISCHARGE HOME Condition: Stable Melissa Limon Oct 30, 2016 20:31
[2016-10-30 20:56] LABS: BLOOD, URINE LARGE (NEG); COMMENT (UR) CULTURE INDICATED; CULTURE IF INDICATED CULTURE INDICATED; GLUCOSE,URINE NEG (NEG); KETONE, URINE NEG (NEG); NITRITE,URINE NEG (NEG); PH, URINE 7.5 (5.0-8.5)
[2016-10-30 20:57] LABS: URINE COLOR LIGHT-BROWN (YELLW/STRAW)
[2016-10-30] MEDS ORDERED: HYDR-3533 PO (21:24)
[2016-10-30] MEDS ORDERED: CIPR500T2 PO (21:24)
[2016-10-30] MEDS ORDERED: LIDOCAINE HCL 1% 50 ML VIAL XX ONE (21:30)
[2016-11-01] MEDS ORDERED: OXYB5TAB10 PO (15:53)
[2016-12-02] MEDS ORDERED: PHEN0.4T PO (10:53)
== END 2016-10-30 22:01 | disposition home or self-care (01) ==
LOC: NEPC 19:33
DX: N39.0 Urinary tract infection, site not specified (principal); J45.909 Unspecified asthma, uncomplicated
CPT/HCPCS: 81001; 87086; 96372; 99283; J0696

== ENCOUNTER → 2016-11-11 | Day surgery (SDC) | payer OTHER ==
[~2016-11-11] MED LIST changes: +ACETAMINOPHEN/HYDROcodone 325 MG/5 MG TAB PO PRN; +AMPICILLIN 1 GM/NS 100 ML IV ONE; +BELLADONNA ALKALOIDS/OPIUM 60 MG SUPP RECTAL SCH; +CIPR500T2 PO; +DO NOT ADM ANY ANTICOAGULANT DRUGS PRN; +GENTAMICIN INJ 240 MG in SODIUM CHLORIDE 0.9% INJ 100 ML IV ONE; +HYDR-3533 PO; -HYDR-3580 PO; +LACTATED RINGER'S 1000 ML INJ 1,000 ML ONE; +MIDAZOLAM HCL 2 MG/2 ML VIAL ONE; +ONDANSETRON HCL 4 MG/2 ML VIAL IV PRN; +ONDANSETRON HCL 4 MG/2 ML VIAL IV PUSH ONE; +OXYB5TAB10 PO; +PROPOFOL 200 MG/20 ML AMP IV ONE; +fentaNYL CITRATE 250 MCG/5 ML AMP ONE
[2016-11-11 06:53] VITALS: BP 124/74; PULSE 68; RESP 16; TEMP 98.4; O2SAT 98
[2016-11-11 07:05] LABS: AUTOMATED NEUTROPHIL # 2.4 TH/MM3 (1.8-7.7); BASOPHIL % 0.7 % (0.0-2.0); EOSINOPHIL # 0.2 TH/MM3 (0-0.4); HEMO FLAGS DIFF FINAL; LYMPH % 36.2 % (9.0-44.0); LYMPHOCYTE # 1.8 TH/MM3 (1.0-4.8); MEAN CELL VOLUME 81.8 FL (80.0-100.0); MEAN CORPUSCULAR HGB CONC 31.8 % (32.0-36.0); MONO % 8.5 % (0.0-8.0); NEUT % 49.6 % (16.0-70.0); PLATELET COUNT 112 TH/MM3 (150-450); RED BLOOD COUNT 5.01 MIL/MM3 (4.50-5.90); RED CELL DISTRIBUTION WIDTH 14.3 % (11.6-17.2); WHITE BLOOD COUNT 4.9 TH/MM3 (4.0-11.0)
--- NOTE | 2016-11-11 09:28 | PD.OP ---
Operative Report Date of Surgery: Nov 11, 2016 Preoperative Diagnosis: urethral stricture of bulbar urethra Postoperative Diagnosis: Same Procedure: Antegrade Cystoscopy via SP tube insertion site; urethral dilatation; cystoscopy with direct visual internal urethrotomy Anesthesia: LMA Surgeon: Sukhwinder Caal Matcher Operator(s): None Resident Surgeon: None Operation and Findings: 26-year-old male with history of urethral stricture disease. Underwent attempted Pimentel placement in the emergency room which was unsuccessful proximally one month ago. The same day underwent flexible cystoscopy in the office and I was unable to place a Pimentel catheter. Patient was then sent down to interventional radiology and an suprapubic catheter was inserted. He presents today for flexible cystoscopy through the SP tube insertion site and urethral dilatation. Risk and benefits were discussed and he was willing to proceed. This brought to the operating room and identify by myself as Doris Friend. He was placed in the dorsal lithotomy position. He was prepped and draped in usual sterile fashion. Preprocedure antibiotics were given and general LMA anesthesia was also administered. Flexible cystoscope was placed through the SP tube insertion site in the bladder neck was identified. The scope was advanced distally to the area of the bulbar urethra and a small pinpoint stricture was identified. A 0.35 Mathur wire was passed antegrade through the urethra and out the penis. Ureteral dilators were then used and passed in a retrograde fashion over the wire and dilatation occurred up to a 16 American. The 19 American cystoscope was attempted to pass through the stricture/ dilated area but this was unsuccessful. The urethrotome with a cold knife was then used to make an incision at 12:00 at the area of the bulbar stricture. I was unable to pass a 19 American cystoscope through the area into the bladder. The bladder was unremarkable other than areas of catheter cystitis. Leaving the wire in place, a 20 American cachil dehe tip catheter was slid over the wire in good position in the bladder. The bladder was evacuated and he tolerated the procedure well. He was transferred to her room in stable condition. Sukhwinder Caal DO Nov 11, 2016 09:28
[2016-11-11 11:40] VITALS: BP 133/70; PULSE 64; RESP 18; TEMP 97.9; O2SAT 99
--- NOTE | 2016-12-01 10:03 | MH ---
cc: REBECCA MURILLO DATE OF ADMISSION 11/11/2016 HISTORY AND PHYSICAL Mr. Friend is a 19 year-old male who presented with findings of a urethral stricture. He is unable to undergo cystoscopy in the office and had a suprapubic tube placed by interventional radiology. He underwent an cystoscopy with urethral dilatation and direct visual internal urethrotomy. A Pimentel was then placed over a wire and he tolerated the procedure well. There were no complications and he was discharged on the following day. He was scheduled to follow up in the office in approximately 10-14 days undergo a void trial at that time. Rebecca LOPEZ/EVELIO /9:43 AM /9:54 AM
--- NOTE | 2016-12-30 11:13 | MH ---
cc: REBECCA MURILLO DATE OF ADMISSION 11/11/2016 HISTORY OF PRESENT ILLNESS This is a 26-year-old male who presented the emergency room with urinary retention. He came to the clinic initially and was unable to pass the cystoscope through his stricture after attempt was made by the ER to place a Pimentel catheter. He required transport down to interventional radiology where they were able to place a percutaneous suprapubic tube catheter without difficulty. He was then admitted to undergo cystoscopy with urethral dilatation and possible direct visual internal urethrotomy. THe risks and benefits were discussed and he was willing to proceed. PAST MEDICAL HISTORY His medical history is unremarkable. He unremarkable. He denies any significant medical problems. PAST SURGICAL HISTORY He denies any past surgical history. SOCIAL HISTORY Denies smoking, drinking or using drugs. FAMILY HISTORY Reviewed and is noncontributory. REVIEW OF SYSTEMS Notes hematuria with dysuria, difficulty with urination and straining to urinate and nocturia. All other review of systems were performed and they were negative per the HPI. PHYSICAL EXAM GENERAL: He is presently afebrile and vital signs stable. He is a well-developed, well-nourished 26-year-old male in no acute distress. HEAD, EARS, EYES, NOSE, AND THROAT: Normocephalic, atraumatic. Pupils equal round react to light. Extraocular movements intact. NECK: Supple. HEART: Regular rate and rhythm. LUNGS: Clear. ABDOMEN: Soft, nontender and nondistended. EXTREMITIES: Show no evidence of cyanosis, clubbing or edema. PELVIC: Suprapubic catheter tube is in place. ASSESSMENT This is a 26-year-old male with a history of urethral stricture disease. The patient will require cystoscopy with urethral dilatation and direct visual internal urethrotomy. Rebecca LOPEZ/EVELIO /10:54 AM /11:06 AM
== END | disposition home or self-care (01) ==
LOC: HSDC 06:01
PROVIDERS: ATTEND Urology
DX: N35.8 Other urethral stricture (principal); J45.909 Unspecified asthma, uncomplicated
CPT/HCPCS: 00910; 52276; 85025; C1769; J0290; J1580; J2250; J2405; J3010; J7120